=== PATIENT | male | born 1970 | race African-American/Black ===

== ENCOUNTER 2019-03-26 01:43 | Emergency (ER) | payer OTHER ==
[~2019-03-26] VITALS: Ht 175.3 cm; Wt 77.1 kg
[2019-03-26] MEDS ORDERED: NKM (01:52)
[2019-03-26 01:54] VITALS: BP 119/78
--- NOTE | 2019-03-26 01:55 | NUR ---
ED Nurse Note: pt ambulated to ed from home c/o itchy throat x 4 days. pt also states having chest pain d/t cough 6/10 on pain scale.
[2019-03-26] MEDS ORDERED: Bacitracin Oint UD TOPIC ONE (02:30)
[2019-03-26] MEDS ORDERED: Guaifenesin/DM 10ml syrup ORAL PRN (02:30)
--- NOTE | 2019-03-26 02:41 | Emergency Room Report ---
History of Present Illness General Chief Complaint: Upper Respiratory Illness Source: Patient Present Illness HPI The patient presents with several problems. The main problem is that he is been wheezing and coughing. He stopped smoking a week ago. He also complains about a sore throat. He has felt nauseated and coughed up some phlegm. He does smoke THC still at this time. He had childhood asthma and has heard himself wheezing. He tried course Coraciden and Mucinex but they have not helped him. He has mild chest pain. Triage nurse reported 0 pain. He rates the pain 6/10. Pain is not exertional. Second problem is he fell over several weeks ago. He scraped up his left leg. He also feels that he might have a foreign body in the bottom of his foot.. He states his tetanus is up-to-date. 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 Reviewed Nursing Documentation: PMH: Agreed; PSxH: Agreed Nursing Documentation-PMH Hx Asthma: Yes Review of Systems All Other Systems: negative except mentioned in HPI Physical Exam Vital Signs Date Time Temp Pulse Resp B/P (MAP) Pulse Ox O2 Delivery O2 Flow Rate FiO2 03/26/19 01:47 98.4 97 16 119/78 (92) 98 Room Air Sp02 EP Interpretation: reviewed, normal General Appearance: well appearing, no apparent distress, GCS 15 Head: normocephalic, atraumatic Eyes: bilateral eye normal inspection, bilateral eye PERRL ENT: hearing grossly normal, normal voice, moist mucus membranes, pharyngeal erythema Neck: full range of motion, supple Respiratory: wheezing - Was tussive Cardiovascular #1: regular rate, rhythm Cardiovascular #2: 2+ radial (R) Gastrointestinal: normal inspection Musculoskeletal: back normal, digits/nails normal, gait/station normal, normal range of motion, no calf tenderness Neurologic: alert, normal gait, grossly normal Psychiatric: mood/affect normal Skin: warm/dry, other - Alleged foreign body base of second toe, abrasions - Left Medical Decision Making PA Attestation Patient presents with several problems. Based on exam it appears that he has pharyngitis and bronchospasm. Antibiotics are indicated. Based on his pulse oximetry does not have pneumonia. He also needs to have a cough suppressant. The abrasions on the leg are treated with local care and local antibiotics. The foreign body he will have to follow-up with his own doctor lead pressman. Patient is stable for outpatient observation and treatment. Diagnostic Impression: Primary Impression: Bronchospasm Additional Impressions: Pharyngitis Qualified Codes: J02.9 - Acute pharyngitis, unspecified Foreign body removal ER Course Patient presents with bronchospasm sore throat lesions on his left leg. Differential differential includes asthmatic bronchitis, pneumonia, pharyngitis , strep, abrasions. There is possibly is a foreign body in his left foot. Abrasions do not appear infected. X-rays are not indicated. Antibiotics are indicated. Also topical antibiotics ordered. The nurse was able to remove the foreign body from the foot. Discussed treatment plan with patient. He is stable for outpatient observation and treatment. Last Vital Signs Date Time Temp Pulse Resp B/P (MAP) Pulse Ox O2 Delivery O2 Flow Rate FiO2 03/26/19 02:56 98.4 95 16 121/75 98 Room Air Status: improved Disposition: HOME, SELF-CARE Condition: Improved Scripts Bacitracin (Bacitracin) 28.4 Gm Oint...g. 1 APPLIC TOPIC BID, #20 GM Prov: Shukri Owens MD 03/26/19 Albuterol Sulfate* (ALBUTEROL SULFATE MDI*) 8.5 Gm Hfa.aer.ad 2 PUFF INH Q6H, #1 EA 0 Refills Prov: Shukri Owens MD 03/26/19 Guaifenesin/Dextromethorphan (Robitussin Cough-Chest Dm Liq) 237 Ml Liquid 5 ML PO Q6HR, #100 ML Prov: Shukri Owens MD 03/26/19 Amoxicillin* (AMOXIL*) 500 Mg Capsule 500 MG ORAL THREE TIMES A DAY, #21 CAP Prov: Shukri Owens MD 03/26/19 Referrals: [facility],REFERRING (PCP) Shukri Owens MD Mar 26, 2019 02:41
--- NOTE | 2019-03-26 02:45 | NUR ---
ED Nurse Note: metal splint noted on left sole of foot, splinter removed, wound cleaned and ointment applied, ERMD notified.
[2019-03-26] MEDS ORDERED: BACITRACIN15 GM TOPIC (02:54)
[2019-03-26] MEDS ORDERED: AMOXICILLIN500 MG ORAL (02:54)
[2019-03-26] MEDS ORDERED: ALBUTEROL SULF8.5 GM INH (02:54)
[2019-03-26] MEDS ORDERED: ROBITUSSIN COU237 M2 PO (02:54)
[2019-03-26 02:56] VITALS: BP 121/75
--- NOTE | 2019-03-26 02:56 | NUR ---
ED Nurse Note: Pt cleared to be d/c per ERMD, pt discharge and aftercare instruction w/ prescription provided, pt education done via discussion and handout, pt advised to follow up with pcp or return to ed if changes in condition, pt verbalized understanding and agrees with plan, vss, ambulatory w/ steady gait left w/ all belongings.
== END 2019-03-26 02:56 | disposition home or self-care (01) ==
LOC: EMR 02:19
DX: J98.01 Acute bronchospasm (principal); J02.9 Acute pharyngitis, unspecified; S80.812A Abrasion, left lower leg, initial encounter; W19.XXXA Unspecified fall, initial encounter; Y92.9 Unspecified place or not applicable; F12.90 Cannabis use, unspecified, uncomplicated; M79.5 Residual foreign body in soft tissue
CPT/HCPCS: 99282

== ENCOUNTER 2019-05-09 02:22 | Emergency (ER) | payer OTHER ==
[~2019-05-09] VITALS: Ht 175.3 cm; Wt 81.6 kg
[~2019-05-09 02:22] MED LIST: ALBUTEROL SULF8.5 GM INH; AMOXICILLIN500 MG ORAL; BACITRACIN15 GM TOPIC; NKM; ROBITUSSIN COU237 M2 PO
--- NOTE | 2019-05-09 02:40 | NUR ---
ED Nurse Note: Recieved pt from home, c/o tooth ache x 1 week and waiting for approval to see dentist, pt denies fevers, nausea, vomiting, or any other complaints or discomforts.
[2019-05-09] MEDS ORDERED: Ketorolac 60mg Inj IM ONE (03:00)
--- NOTE | 2019-05-09 03:00 | Emergency Room Report ---
History of Present Illness General Chief Complaint: Toothache Source: Patient Present Illness HPI The pain is rated 10/10 the patient presents with several days of left lower molar pain and jaw pain. The pain became severe and radiating to his TMJ. He is unable to sleep. He has been taking Tylenol codeine, Motrin 600 and amoxicillin. He has been intermittently taking the amoxicillin and thinks that this might be the problem. He is also been putting cotton between his gum and cheek. He is barely able to eat. He has an appoint with his dentist on Friday which is tomorrow. He denies fevers or chills.. He denies fevers or chills. He does not feel dehydrated. No visual changes. No headache per se but the TMJ is an area where the pain radiates to. it is aching and constant. Allergies: Coded Allergies: No Known Allergies (Unverified , 03/26/19) Patient History Past Medical History: see triage record Social History: Denies: smoking - former Social History Narrative From home Reviewed Nursing Documentation: PMH: Agreed; PSxH: Agreed Nursing Documentation-PMH Hx Asthma: Yes - childhood Hx COPD: Yes - bronchitis Review of Systems Constitutional: Reports: see HPI ENT: Reports: see HPI Respiratory: Denies: shortness of breath Cardiovascular: Denies: chest pain Gastrointestinal: Denies: nausea Musculoskeletal: Reports: see HPI Skin: Denies: rash Neurological: Reports: see HPI Physical Exam Vital Signs Date Time Temp Pulse Resp B/P (MAP) Pulse Ox O2 Delivery O2 Flow Rate FiO2 05/09/19 02:26 98.2 54 16 123/76 (92) 98 Room Air Sp02 EP Interpretation: reviewed, normal General Appearance: well appearing, no apparent distress, GCS 15 Head: normocephalic, atraumatic Eyes: bilateral eye normal inspection, bilateral eye PERRL ENT: moist mucus membranes, other - Swelling left lower posterior jaw without fluctuance or erythema Neck: full range of motion, supple Respiratory: normal inspection, speaking full sentences Cardiovascular #1: regular rate, rhythm Gastrointestinal: normal inspection Musculoskeletal: gait/station normal Neurologic: alert, oriented x3, grossly normal Psychiatric: mood/affect normal Skin: no rash Medical Decision Making Diagnostic Impression: Primary Impression: Pain, dental ER Course Patient presents with left lower rear molar pain after a apparent problem root canal with jaw pain. Based on exam patient has dental pain is referred to his TMJ. He needs to continue his antibiotics and given slightly more analgesic. He is advised to take hydrogen peroxide rinses. He is prescribed [place]. Advised to use the topical analgesics and anesthetic agents. He is advised to see his dentist on Friday which is tomorrow. Patient stable for outpatient observation and treatment. Last Vital Signs Date Time Temp Pulse Resp B/P (MAP) Pulse Ox O2 Delivery O2 Flow Rate FiO2 05/09/19 03:38 98.2 05/09/19 03:35 16 121/82 98 Room Air 05/09/19 02:26 54 Status: improved Disposition: HOME, SELF-CARE Condition: Improved Scripts Ibuprofen* (MOTRIN*) 600 Mg Tablet 600 MG ORAL Q6H PRN for For Pain, #20 TAB 0 Refills Prov: Shukri Owens MD 05/09/19 Hydrocodone Bit/Acetaminophen 5-325* (NORCO 5-325*) 1 Each Tablet 1 TAB ORAL Q6H PRN for For Pain, #8 TAB 0 Refills Prov: Shukri Owens MD 05/09/19 Referrals: [facility],REFERRING (PCP) Shukri Owens MD May 09, 2019 03:00
[2019-05-09] MEDS ORDERED: IBUPROFEN600 MG ORAL (03:02)
[2019-05-09] MEDS ORDERED: NORCO 5-325 TA1 EACH ORAL (03:02)
[2019-05-09 03:35] VITALS: BP 121/82
--- NOTE | 2019-05-09 03:45 | NUR ---
ER DISCHARGE NOTE: Patient is cleared to be discharged per ERMD, pt is aox4, on room air, with stable vital signs. pt was given dc and prescription instructions, pt was able to verbalize understanding, pt id band removed without complications. pt is able to ambulate with steady gait. pt took all belongings.
== END 2019-05-09 03:45 | disposition home or self-care (01) ==
LOC: EMR 02:54
DX: K08.89 Other specified disorders of teeth and supporting structures (principal); R68.84 Jaw pain; J44.9 Chronic obstructive pulmonary disease, unspecified
CPT/HCPCS: 96372; 99283